=== PATIENT | male | born 1935 | race Caucasian/White ===

== ENCOUNTER 2017-11-14 11:53 | Inpatient (IN) | payer MEDICARE, BC ==
[~2017-11-14] VITALS: Ht 185.4 cm; Wt 120.2 kg
[~2017-11-14 11:53] MED LIST: ALDACTONE25 MG PO; ASPIRIN325 MG PO; BUSPAR5 MG PO; DULCOLAX10 MG/SUPP RC; LASIX20 MG PO; LOPRESSOR50 MG PO; MIRALAX17 GM PO; PRINIVIL20 MG PO; SENOKOT-S TABLE1 TAB PO; TOPROL XL50 MG; VITAMIN E400 UNI2 PO; ZOCOR40 MG PO; ZYLOPRIM100 MG PO
[2017-11-14] MEDS ORDERED: LOPRESSOR25 MG PO (12:02)
[2017-11-14] MEDS ORDERED: ZYLOPRIM300 MG PO (12:02)
[2017-11-14] MEDS ORDERED: BUSPAR 15 MG TA15 MG PO (12:03)
[2017-11-14 12:19] VITALS: BP 201/99
[2017-11-14 12:32] LABS: BASOPHILS 0.4 % (0-2); EOSINOPHILS 4.6 % (0-7); HEMATOCRIT 45.5 % (42.0-54.0); HEMOGLOBIN 15.3 g/dL (13.5-17.5); IMMATURE GRANULOCYTES 0.5 % (0-5); LYMPHOCYTES 19.3 % (15-50); MCH 28.7 pg (26.0-34.0); MCHC 33.6 g/dL (31.0-37.0); MCV 85.4 fL (80.0-100.0); MEAN PLATELET VOLUME 10.8 fL (7.4-10.4); MONOCYTES 11.7 % (2-11); NEUTROPHILS 63.5 % (40-80); PLATELET COUNT 223 10x3/uL (130-400); RBC 5.33 10x6/uL (4.20-6.10); RDW 16.4 % (11.5-14.5); WBC 14.9 10x3/uL (4.8-10.8)
[2017-11-14 12:40] LABS: APTT 30.1 SECONDS (22.8-39.4); INR 0.99 (0.85-1.17); PROTIME 12.7 SECONDS (11.6-15.0)
[2017-11-14 12:42] VITALS: BP 182/97
[2017-11-14 12:52] LABS: ALBUMIN 3.5 g/dL (3.4-5.0); ALKALINE PHOSPHATASE 88 U/L (46-116); ALT (SGPT) 21 U/L (10-68); BILIRUBIN - TOTAL 0.48 mg/dL (0.2-1.3); CALC OSMOLALITY 280 mosm/kg (275-300); CALCIUM 8.9 mg/dL (8.5-10.1); CARBON DIOXIDE 30.8 mmol/L (21.0-32.0); CHLORIDE - SERUM 102 mmol/L (98-107); CREATININE - SERUM 1.4 mg/dL (0.6-1.3); GLUCOSE 97 mg/dL (74-106); POTASSIUM - SERUM 3.7 mmol/L (3.5-5.1); PROTEIN - SERUM 7.1 g/dL (6.4-8.2); SODIUM 140 mmol/L (136-145); UREA NITROGEN 18 mg/dL (7-18); eGFR NON AFRICAN AMERICAN 51 mL/min (90-120)
[2017-11-14 13:09] LABS: CKMB 3.7 U/L (0.0-3.6); CREATINE KINASE 105 UL (21-232); PRO BNP 3725 pg/mL (0-450)
[2017-11-14 13:15] LABS: TROPONIN-I 0.823 ng/mL (0.000-0.060)
[2017-11-14 18:46] LABS: CKMB 3.4 U/L (0.0-3.6); CREATINE KINASE 110 UL (21-232)
[2017-11-14 18:50] LABS: TROPONIN-I 0.779 ng/mL (0.000-0.060)
[2017-11-14 19:31] VITALS: BP 127/56
[2017-11-14 20:23] VITALS: BP 147/62
[2017-11-14 23:16] VITALS: BP 188/87
[2017-11-15 01:37] LABS: CKMB 3.5 U/L (0.0-3.6); CREATINE KINASE 114 UL (21-232)
[2017-11-15 01:42] LABS: TROPONIN-I 0.813 ng/mL (0.000-0.060)
[2017-11-15 03:45] VITALS: BP 188/87; BMI 35.0
[2017-11-15 04:18] VITALS: BP 133/64
[2017-11-15 07:52] LABS: CKMB 4.4 U/L (0.0-3.6); CREATINE KINASE 140 UL (21-232); TROPONIN-I 0.849 ng/mL (0.000-0.060)
[2017-11-15 08:23] VITALS: BP 158/74
[2017-11-15 11:05] VITALS: BP 162/77
[2017-11-15 15:02] VITALS: BP 146/70
[2017-11-15 19:40] VITALS: BP 143/73
[2017-11-16 02:51] VITALS: BP 178/75
[2017-11-16 06:13] VITALS: BP 157/82
[2017-11-16 07:46] VITALS: BP 174/85
[2017-11-16 09:55] VITALS: BMI 34.9
[2017-11-16 12:45] VITALS: BP 164/84
[2017-11-16 16:29] VITALS: BP 198/90
[2017-11-16 20:03] VITALS: BP 145/82
[2017-11-17 04:00] VITALS: BP 134/95
[2017-11-17 08:29] VITALS: BP 150/68
[2017-11-17 11:37] VITALS: BP 144/84
[2017-11-17] MEDS ORDERED: CATAPRES0.1 MG PO (12:04)
[2017-11-17] MEDS ORDERED: IPRAT-ALBUT 0.5-3 ML UPD (12:04)
[2017-11-17] MEDS ORDERED: K-DUR20 MEQ PO (12:05)
[2017-11-17] MEDS ORDERED: ATIVAN1 MG PO (12:05)
[2017-11-17 12:13] VITALS: Ht 185.4 cm; Wt 120.2 kg
== END 2017-11-17 17:48 | disposition short-term general hospital (02) | DRG 307 ==
LOC: D.ER 11:53 → D.M3 15:40 → D.EDHOLD 15:40 → D.M3 19:49
PROVIDERS: Family Medicine
DX: I35.0 Nonrheumatic aortic (valve) stenosis (principal); I44.7 Left bundle-branch block, unspecified; R00.1 Bradycardia, unspecified; I11.0 Hypertensive heart disease with heart failure; I50.9 Heart failure, unspecified